=== PATIENT | female | born 1960 | race Caucasian/White ===

== ENCOUNTER 2020-06-08 12:40 | Inpatient (IN) | payer MEDICARE, MEDICAID, SELFPAY ==
[2020-06-08] VITALS (11 sets, daily range): BP systolic 133–212; BP diastolic 70–110; PULSE 40–107; RESP 12–20; TEMP 36.6–37.2; O2SAT 97–100; BMI 19.1; BMI 19.2; BMI 18.8
--- NOTE | 2020-06-08 13:15 | RAD_ITS ---
STUDY: X-RAY CHEST REASON FOR EXAM: Female, 59 years old. COUGH TECHNIQUE: PA and lateral views of the chest. COMPARISON: None. FINDINGS: Cardiac silhouette unremarkable. Pulmonary vascularity unremarkable. Aorta calcified. No focal patchy airspace opacities. No pleural effusions. COPD/hyperaeration. Upper abdomen unremarkable. Osseous structures demineralized with degenerative features. No pneumothorax. RAD/Chest PA and Lateral IMPRESSION: No acute cardiopulmonary findings Electronically Signed: Chito Dove DO at 13:31 EDT Tel , Service support ,
[2020-06-08 14:44] LABS: Absolute Neutrophil Count 1.3 X10^3/uL (2.0-7.7); Basophil# 0.03 X10^3/uL; Eosinophil# 0.01 X10^3/uL; Eosinophils% 0.3 % (0-5); Hematocrit 41.1 % (37-47); Hemoglobin 13.7 g/dL (12.0-15.0); Lymphocyte % 41.2 % (19-41); Mean Corp Hgb Conc 33.3 g/dL (32-36); Mean Corpuscular Hgb 32.4 pg (27.0-32.0); Mean Corpuscular Volume 97.2 fL (81-99); Mean Platelet Vol. 9.2 fl (6.2-12.0); Monocyte# 0.35 X10^3/uL; NRBC Flagged by Analyzer 0 % (0-5); Neutrophil # 1.32 X10^3/uL (2.7-7.7); Neutrophil % 45.5 % (47-70); Platelet Count 222 K/mm3 (150-450); RBC Distribution Width CV 12.6 % (11.6-14.6); RBC Distribution Width SD 44.9 fl (35.1-43.9); Red Blood Count 4.23 M/mm3 (4.2-5.4); White Blood Count 2.9 K/mm3 (4.4-11.0)
--- NOTE | 2020-06-08 14:44 | ED.DCSUM_ITS ---
History of Present Illness Chief Complaint: Substance Abuse Detail of Chief Complaint: Detox alcohol and cocaine and respiratory symptoms Informant: Patient Onset: Days - Respiratory symptoms 4 days., Month(s) - Patient has been drinking heavily for months. Context: Gradual Onset - With respect to alcohol intoxication, Sudden Onset - With respect to the respiratory symptoms Timing: Continuous Quality: Please read HPI Location: Please read HPI Current Severity: - - Respiratory is mild alcohol is significant Maximum Severity: Severe Worsened by: Unknown Relieved by: Nothing Associated Symptoms: Respiratory symptoms, history of chronic pancreatitis Narrative: Patient is 59-year-old woman who presents for detox. She states she drinks 12 pack a day and a pint of vodka. She has not had withdrawal seizures in the past. She denies history of DTs. She denies black or maroon-colored stool. She does bruise easily. She does admit to cocaine use. She denies history hepatitis C or HIV. She denies fever, chills night sweats. She does report nasal congestion with cough that is at times productive. She is a smoker. She denies exposure to Covid. She denies loss of taste or smell. She denies shortness of breath. She denies leg pain, swelling discoloration. Prior similar symptoms: Yes Recent Illness/Hospitalization: No - Past Medical History (1) History of alcoholism Status: Acute (2) History of pneumonia Status: Acute Past Medical History - Allergies and Home Meds Allergies/Adverse Reactions: Allergies No Known Allergies Allergy (Verified 06/08/20 12:41) Primary Care Physician: [facility] Doctor,Out of [NON-STAFF] - Prior records reviewed: Yes Surgical History: noncontributory Lives: Alone Smoking Status: Never smoker Alcohol: Heavy Drugs: Cocaine Review of Systems General: Reports: Malaise. Denies: Chills, Fever, Subjective, Sweats Eyes: Denies: Visual changes - bilaterally, Blurred Vision - bilaterally ENT: Reports: Rhinorrhea, Sore throat. Denies: Bilateral ear pain Cardiovascular: Denies: Chest pain, Palpitations Respiratory: Reports: Dyspnea, Cough, Sputum. Denies: Dyspnea on exertion, Orthopnea, Paroxysmal nocturnal dyspnea Gastrointestinal: Reports: Abdominal pain, Nausea. Denies: Vomiting, Diarrhea, Constipation, Melena, Hematochezia, -, - Genitourinary: Denies: Dysuria, Hematuria, Frequency Musculoskeletal: Denies: Myalgias, Arthralgias, Neck pain, Back pain, Swelling, Extremity Pain Skin: Denies: Rash, Wounds Neurological: Denies: Headache, Weakness Psych: Reports: Depression. Denies: Suicidal thoughts Endocrine: Denies: Polyuria, Polydipsia Hematologic: Denies: Easy bruising, Easy bleeding Physical Exam Vital Signs/Narrative: Vital Signs Temp Pulse Resp BP Pulse Ox 06/08/20 14:26 74 16 192/86 H 100 06/08/20 12:46 89 16 177/100 H 99 06/08/20 12:41 97.9 F 86 16 177/100 H 98 Inital Vital Signs reviewed: Yes General: Well nourished, Well developed, Unkempt Head: Normocephalic Eyes: Perrl, EOMI. Negative for: Pale conjunctiva, Scleral icterus ENT: Moist mucous membranes, TM's clear, Nasal congestion. Negative for: No rhinorrhea Neck: Supple, Nontender, No lymphadenopathy, No JVD Cardiovascular: Regular rate, Regular rhythm, No murmurs, Normal S1, Normal S2 Respiratory: No distress, CTA bilaterally, Chest nontender Abdomen: Soft, Nontender, Nondistended, Normal bowel sounds Rectal: Deferred Back: Nontender, Normal Inspection Extremities: Nontender, No edema Skin: Normal color, No rash, No Trauma. Negative for: Cyanosis, Diaphoresis, Jaundice Neurological: Alert, Oriented x3, Cranial nerves II-XII grossly intact, Normal Strength, Normal Sensation, Normal DTR - Is no clonus or Babinski sign. Psychological: Depressed Diagnostic/Tx/Re-eval Chest X-Ray - ED: 1 View, Read by ED Physician, Normal, Heart, Lungs, Media stinum, Bony Structures, No Acute Disease, - - Chest x-ray was read by me at 1221. Impressions Chest X-Ray 06/08/20 13:15 IMPRESSION: No acute cardiopulmonary findings Electronically Signed: Chito Dove DO at 13:31 EDT Tel , Service support , 06/08/20 13:15 Chest PA and Lateral [RAD] Stat 06/08/20 14:20 Mucosa - Nose SARS-CoV-2 Antigen (Rapid) - Final Laboratory Results 06/08/20 06/08/20 06/08/20 14:30 14:30 14:30 WBC 2.9 L RBC 4.23 Hgb 13.7 Hct 41.1 MCV 97.2 MCH 32.4 H MCHC 33.3 RDW Std Deviation 44.9 H RDW Coeff of Kelli 12.6 Plt Count 222 MPV 9.2 Immature Gran % (Auto) 0.000 Neut % (Auto) 45.5 L Lymph % (Auto) 41.2 H Desha % (Auto) 12.0 H Eos % (Auto) 0.3 Baso % (Auto) 1.0 Absolute Neuts (auto) 1.3 L Absolute Lymphs (auto) 1.20 Nucleated RBC % 0 Sodium 141 Potassium 3.5 Chloride 107 Carbon Dioxide 27.0 Anion Gap 7 BUN 6 L Creatinine 0.54 L Estim Creat Clear Calc 79.45 Est GFR (MDRD) Af Amer 148 Est GFR (MDRD) Non-Af 122 BUN/Creatinine Ratio 11.2 Glucose 71 L Calcium 8.9 Total Bilirubin 0.50 Direct Bilirubin 0.18 AST 198 H ALT 95 H Alkaline Phosphatase 178 H Total Protein 7.7 Albumin 3.7 Globulin 4.0 Urine Opiates Screen Urine Methadone Screen Ur Barbiturates Screen Ur Phencyclidine Scrn Ur Amphetamines Screen U Methamphetamin-MDMA U Benzodiazepines Scrn Urine Cocaine Screen U Cannabinoids Screen Ur Drug Screen Comment Ethyl Alcohol 157.0 06/08/20 15:00 WBC RBC Hgb Hct MCV MCH MCHC RDW Std Deviation RDW Coeff of Kelli Plt Count MPV Immature Gran % (Auto) Neut % (Auto) Lymph % (Auto) Desha % (Auto) Eos % (Auto) Baso % (Auto) Absolute Neuts (auto) Absolute Lymphs (auto) Nucleated RBC % Sodium Potassium Chloride Carbon Dioxide Anion Gap BUN Creatinine Estim Creat Clear Calc Est GFR (MDRD) Af Amer Est GFR (MDRD) Non-Af BUN/Creatinine Ratio Glucose Calcium Total Bilirubin Direct Bilirubin AST ALT Alkaline Phosphatase Total Protein Albumin Globulin Urine Opiates Screen NEGATIVE Urine Methadone Screen NEGATIVE Ur Barbiturates Screen NEGATIVE Ur Phencyclidine Scrn NEGATIVE Ur Amphetamines Screen NEGATIVE U Methamphetamin-MDMA NEGATIVE U Benzodiazepines Scrn NEGATIVE Urine Cocaine Screen POSITIVE H U Cannabinoids Screen NEGATIVE Ur Drug Screen Comment Ethyl Alcohol Blood work for neutropenia which may be due to viral illness. Covid test was negative. Tox was positive for cocaine which patient admits to using. - Medical Decision Making With history of cough and rhinorrhea will obtain Covid test and chest x-ray to rule out pneumonia and Covid infection versus viral upper restaurant infection. Appropriate blood work was obtained for admission to detox bed. Since patient is not tachycardic has no symptoms withdrawal and is not hyperreflexic treatment was not initiated in the department. ED Disposition - Plan for ED Patient: Disposition: [facility] Diagnosis: Acute alcoholic intoxication in alcoholism (blood level 0.08-0.29), Neutropenia due to infection, Upper respiratory infection with cough and congestion, Cocaine abuse Referrals: [facility] Doctor,Out of [NON-STAFF] -
[2020-06-08 15:00] LABS: AST(SGOT) 198 U/L (15-37); Alanine Aminotransfer ALT/SGPT 95 U/L (13-56); Albumin, Serum 3.7 g/dL (3.2-5.0); Alkaline Phosphatase 178 U/L (45-117); Anion Gap 7 (5-15); BUN 6 mg/dL (7-18); BUN/Creat Ratio 11.2 RATIO (10-20); Bilirubin, Direct 0.18 mg/dL (0.00-0.30); Calcium,Total 8.9 mg/dL (8.5-10.1); Chloride 107 mmol/L (98-107); Creatinine, Serum 0.54 mg/dL (0.55-1.02); EST Glomerular Filtration Rate 122 mL/min (>60); Est Glom Filt Rate - Afr Amer 148 mL/min (>60); Estimated Creatinine Clearance 79.45 ml/min; Glucose 71 mg/dL (74-106); Potassium 3.5 mmol/L (3.5-5.1); Protein, Total 7.7 g/dL (6.4-8.2); Sodium Level 141 mmol/L (136-145)
[2020-06-08 15:19] LABS: Amphetamine Urine VISTA NEGATIVE (<1000 ng/mL); Barbiturate Urine VISTA NEGATIVE (< 200 ng/mL); Benzodiazepine Urine VISTA NEGATIVE (< 200 ng/mL); Cocaine Urine VISTA POSITIVE (< 300 ng/mL); Ecstacy Urine VISTA NEGATIVE (< 500 ng/mL); Methadone Urine VISTA NEGATIVE (< 300 ng/mL); PCP Urine VISTA NEGATIVE (< 25 ng/mL); THC Urine VISTA NEGATIVE (< 50 ng/mL); Vista UDS pH Range 6
--- NOTE | 2020-06-08 15:38 | HP.PCM_ITS ---
<Tressa Mcintosh AIRLINE COUNTER AGENT - Last Filed: 06/08/20 16:04> Problem List (1) Acute alcoholic intoxication in alcoholism (blood level 0.08-0.29) Status: Acute (2) Cocaine abuse Status: Chronic (3) History of alcoholism Status: Chronic (4) History of pneumonia Status: Chronic (5) Neutropenia due to infection Status: Chronic (6) Upper respiratory infection with cough and congestion Status: Acute History of Present Illness Date of Admission: 06/08/20 Chief Complaint: Alcohol detox. The patient is a 59 year old F who presents to the emergency room requesting alcohol detox. Patient states she drinks a 12 pack per day with last drink this morning. She also admits to cocaine use although she states she does not use cocaine daily as she cannot afford it. She also reports marijuana use. Patient states she has been through detox programs in the past however it has been a while. She denies history of alcohol related seizures. She states her daughter drove her here from [facility] for detox program. She complains of nonproductive cough which she states has been ongoing for the past month. She denies fever, chills. Denies change in taste, smell. Denies exposure to Covid. Her other past medical history includes hypertension, hyperlipidemia, chronic pancreatitis, tobacco dependence. She denies abdominal pain, nausea, vomiting. Reports anxiety and shaking withdrawal symptoms currently. Past Medical History Past Medical History (Chronic Problems): Chronic Problems History of alcoholism (Chronic) History of pneumonia (Chronic) Neutropenia due to infection (Chronic) Cocaine abuse (Chronic) Allergies No Known Allergies Allergy (Verified 06/08/20 12:41) Home Medications: Ambulatory Orders Medication Instructions Recorded Lipase/Protease/Amylase [Fuentes Goss ea PO TIDCM 06/08/20 36,000 Units Capsule] Propranolol HCl [Inderal (Beta 20 mg PO DAILY 06/08/20 Shazia)] Simvastatin [Zocor] 20 mg PO QHS 06/08/20 Surgical History: no surgical history Psychiatric History: No pertinent psych hx DOUBLE BACK OPERATOR History: No pertinent DOUBLE BACK OPERATOR history Lives: Alone Smoking Status: Current every day smoker Tobacco Use: Cigarettes Alcohol: Heavy Drugs: Cocaine, Marijuana - *Family History Maternal History Items: Heart Disease, Hypertension Paternal History Items: Heart Disease, Hypertension Review of Systems Constitutional: Reports: Chills, Malaise. Denies: Fever HEENT: Reports: Nasal Congestion. Denies: Head Aches, Sinus Congestion, Sinus Drainage, Sore Throat Cardiovascular: Denies: Chest Pain, Edema, Palpitations, Syncope Respiratory: Reports: Cough. Denies: Shortness of Breath, Sputum production, Wheezing Gastrointestinal: Denies: Abdominal Pain, Nausea, Vomiting Genitourinary: Denies: Dysuria Musculoskeletal: Denies: Joint Pain, Joint Tenderness Skin: Denies: Rash, Wounds Neurological: Denies: Numbness, Tingling, Focal weakness Psychiatric: Denies: Anxiety, Depression, Homicidal Ideations, Suicidal Ideations Hematologic/ Lymphatic: Denies: Easy Bruising, Easy Bleeding VTE Information - Inpt Only VTE Present on Admission: No VTE Mechan Device Prophylaxis: None VTE Pharm Prophylaxis ordered?: No Reason prophylaxis not ordered:: Treatment Not Indicated Patient Problems: Active and Suspected Problems Acute alcoholic intoxication in alcoholism (blood level 0.08-0.29) (Acute) Upper respiratory infection with cough and congestion (Acute) - Physical Exam Vitals/I&O's: Vital Signs Temp Pulse Resp BP Pulse Ox 97.9 F 74 16 192/86 H 100 06/08/20 12:41 06/08/20 14:26 06/08/20 14:26 06/08/20 14:26 06/08/20 14:26 Oxygen Delivery Method Room Air Weight: 101 lb 6.602 oz Body Mass Index (BMI) 19.1 General: Alert, Oriented x3, Cooperative, - - Tearful HEENT: Atraumatic, PERRLA, EOMI, Normocephalic Oral: Dry Mucosa Neck: Supple, No JVD, Negative Carotid Bruits Lungs: Clear to auscultation, Diminished Cardiovascular: Regular rate, No murmurs Abdomen: Bowel Sounds Present, Soft, Non Tender, Non-Distended Extremities: No clubbing, No cyanosis, No edema, Capillary Refill Less than 3 Seconds Skin: No rashes, No breakdown Musculoskeletal: No Tenderness to Palpation of Joints or Extremities Neurological: Cranial nerves II-XII grossly intact, Neuro grossly intact Psych/Mental Status: Normal Affect, Appropriate Microbiology Past 72 Hours 06/08/20 14:20 Mucosa - Nose SARS-CoV-2 Antigen (Rapid) - Final Laboratory Results 06/08/20 14:30: WBC 2.9 L, RBC 4.23, Hgb 13.7, Hct 41.1, MCV 97.2, MCH 32.4 H, MCHC 33.3, RDW Std Deviation 44.9 H, RDW Coeff of Kelli 12.6, Plt Count 222, MPV 9.2, Immature Gran % (Auto) 0.000, Neut % (Auto) 45.5 L, Lymph % (Auto) 41.2 H, Wake % (Auto) 12.0 H, Eos % (Auto) 0.3, Baso % (Auto) 1.0, Absolute Neuts (auto) 1.3 L, Absolute Lymphs (auto) 1.20, Nucleated RBC % 0 06/08/20 14:30: Sodium 141, Potassium 3.5, Chloride 107, Carbon Dioxide 27.0, Anion Gap 7, BUN 6 L, Creatinine 0.54 L, Estim Creat Clear Calc 79.45, Est GFR (MDRD) Af Amer 148, Est GFR (MDRD) Non-Af 122, BUN/Creatinine Ratio 11.2, Glucos e 71 L, Calcium 8.9, Total Bilirubin 0.50, Direct Bilirubin 0.18, AST 198 H, ALT 95 H, Alkaline Phosphatase 178 H, Total Protein 7.7, Albumin 3.7, Globulin 4.0 06/08/20 14:30: Ethyl Alcohol 157.0 06/08/20 15:00: Urine Opiates Screen NEGATIVE, Urine Methadone Screen NEGATIVE, Ur Barbiturates Screen NEGATIVE, Ur Phencyclidine Scrn NEGATIVE, Ur Amphetamines Screen NEGATIVE, U Methamphetamin-MDMA NEGATIVE, U Benzodiazepines Scrn NEGATIVE, Urine Cocaine Screen POSITIVE H, U Cannabinoids Screen NEGATIVE, Ur Drug Screen Comment Assessment/Plan All Active Problems Acute alcoholic intoxication in alcoholism (blood level 0.08-0.29) (Acute) Upper respiratory infection with cough and congestion (Acute) 1. Acute alcohol withdrawal, chronic alcohol dependence-medical stabilization per protocol. Phenobarb taper. As needed regimen for somatic complaints. Thiamine, folic acid, multivitamin supplementation. Alcohol level 157 on admission. OneEity consult. 2. Cocaine use-encouraged cessation. Tox screen negative for other substances. 3. Hypertension-patient states she is on propanolol. Unsure dose. Home med list not yet updated. PRN hydralazine for systolic blood pressure greater than 160. 4. Hyperlipidemia-continue home statin regimen. 5. Chronic pancreatitis-patient denies abdominal pain. DVT prophylaxis-low risk, not indicated This patient was seen by EMMA Guerra under the supervision of Dr. Bedoya. <Roya Bedoya - Last Filed: 06/08/20 16:57> History of Present Illness The patient is a 59 year old F [] Past Medical History Allergies No Known Allergies Allergy (Verified 06/08/20 12:41) - Physical Exam Vitals/I&O's: Vital Signs Temp Pulse Resp BP Pulse Ox 97.9 F 64 12 144/81 H 97 06/08/20 12:41 06/08/20 15:57 06/08/20 15:57 06/08/20 15:57 06/08/20 15:00 Oxygen Delivery Method Room Air Weight: 46 kg Body Mass Index (BMI) 19.1 Microbiology Past 72 Hours 06/08/20 14:20 Mucosa - Nose SARS-CoV-2 Antigen (Rapid) - Final Laboratory Results 06/08/20 14:30: WBC 2.9 L, RBC 4.23, Hgb 13.7, Hct 41.1, MCV 97.2, MCH 32.4 H, MCHC 33.3, RDW Std Deviation 44.9 H, RDW Coeff of Kelli 12.6, Plt Count 222, MPV 9.2, Immature Gran % (Auto) 0.000, Neut % (Auto) 45.5 L, Lymph % (Auto) 41.2 H, Wake % (Auto) 12.0 H, Eos % (Auto) 0.3, Baso % (Auto) 1.0, Absolute Neuts (auto) 1.3 L, Absolute Lymphs (auto) 1.20, Nucleated RBC % 0 06/08/20 14:30: Sodium 141, Potassium 3.5, Chloride 107, Carbon Dioxide 27.0, Anion Gap 7, BUN 6 L, Creatinine 0.54 L, Estim Creat Clear Calc 79.45, Est GFR (MDRD) Af Amer 148, Est GFR (MDRD) Non-Af 122, BUN/Creatinine Ratio 11.2, Glucose 71 L, Calcium 8.9, Total Bilirubin 0.50, Direct Bilirubin 0.18, AST 198 H, ALT 95 H, Alkaline Phosphatase 178 H, Total Protein 7.7, Albumin 3.7, Globulin 4.0 06/08/20 14:30: Ethyl Alcohol 157.0 06/08/20 14:30: Lipase 160 06/08/20 15:00: Urine Opiates Screen NEGATIVE, Urine Methadone Screen NEGATIVE, Ur Barbiturates Screen NEGATIVE, Ur Phencyclidine Scrn NEGATIVE, Ur Amphetamines Screen NEGATIVE, U Methamphetamin-MDMA NEGATIVE, U Benzodiazepines Scrn NEGATIVE, Urine Cocaine Screen POSITIVE H, U Cannabinoids Screen NEGATIVE, Ur Drug Screen Comment 06/08/20 16:00: COVID-19 ([facility]ARRA) Pending Current Medications Sodium Chloride (0.9% Saline Lock 10 Ml Syringe) 10 - 40 ml IV UD PRN PRN Reason: SALINE FLUSH Assessment/Plan This patient was seen in conjunction with Tressa Mcintosh NP. I have independently interviewed and examined the patient and reviewed pertinent historical, laboratory, and other data. Please refer to her note for patient's presentation, findings, and recommendations. 59 y/o female with PMHx of Hypertension, Hyperlipidemia, chronic alcohol use disorder, chronic pancreatitis who comes in requesting for medical stabilization from alcohol withdrawal. She admits to drinking 12 packs of beer. Last drank 3 cans of beer on the day of admission. She also uses cocaine, marijuana and smokes tobacco. She used cocaine the night prior to admission. She comes to [facility] at the insistence of her daughter. She has some URI symptoms of cough, running nose. Denies fever or chills. Denies any sick contacts. Vitals show uncontrolled BP Physical Exam: Gen: Looks in some discomfort, not pale, not jaundiced, alert oriented x3 CVS:HS I +II, regular, no murmurs RESP: Diminished at lung bases GI: BS present and normal, nontender, no palpable organs EXT:No edema Labs reviewed: ASSESSMENT: 1. Chronic alcohol use disorder, with impending acute alcohol withdrawal 2. Hypertensive urgency 3. URI 4. Nicotine dependence, refused replacement 5. Hyperlipidemia 6. Chronic pancreatitis 7. Elevated liver enzymes Plan: Admit to Med surg Check Mg COVID-19 PCR, Resp special event assistant on Ativan withdrawal protocol Continue on thiamine, folic acid Hydralazine IV prn for blood pressure Continue on rest of home meds including statin, Creon Home med list is pending Inpatient E&M: 54411 Init Hosp L2
--- NOTE | 2020-06-08 15:47 | CM.ED ---
Social Work Consult: Substance Abuse Referral Source: Self referral due to reason for visit. Met with patient in room. Introduced self and social worker health services role. Patient agreeable to speak with this social worker health services. Patient reports to be seeking medical management of withdrawal symptoms. Patient substance of choice is alcohol but also uses Heroin and THC. Patient reports last use of alcohol was today and THC was yesterday. Patient reports to have family for support and plans to follow up with a residential program. Patient verbally agreeing to [facility]. Active listening and support provided. Patient reports to have been sober for 30 years until 2 years ago when patient father passed and I just slipped up. Patient reports motivation as I am tired. Telephone call to Silvia Retana. Updated on patient admission to [facility] program. Silvia plans to see patient tomorrow. Aston TIPTON, NICKIE
[2020-06-08] MEDS: Acetaminophen 325 MG Tablet PO (16:05)
[2020-06-08 16:10] LABS: Lipase 160 U/L (73-393)
--- NOTE | 2020-06-08 17:25 | ED.RN ---
DR YADAV INFORMED OF HYPERTENSION. PT REPORTS HX OF HTN-TAKES INDERAL 20MG DAILY AT HOME, HAS NOT HAD TODAY. PT REPORTS SBP IN 170'S AT HOME. DR YADAV STATES CANNOT GIVE PT INDERAL W/HX OF COCAINE USE. STATES HE WILL PLACE ORDER FOR ATIVAN X1.
[2020-06-08] MEDS: LORazepam 2 MG/ML Syringe 1 MG IV ×2 (17:32→18:05)
--- NOTE | 2020-06-08 17:59 | ED.RN ---
DR YADAV INFORMED WH=279/110. PT CONTINUES TO C/O GONZALEZ. STATES HE WILL PLACE NEW ORDERS
[2020-06-08] MEDS: Verapamil 5 MG/2 ML VIAL IV (18:39)
[2020-06-08 18:53] LABS: Probe Check NS; Specimen Processing Control NS
--- NOTE | 2020-06-08 19:31 | EKG12_ITS ---
Test Reason : COCAINE USE Blood Pressure : / mmHG Vent. Rate : 090 BPM Atrial Rate : 090 BPM P-R Int : 144 ms QRS Dur : 066 ms QT Int : 350 ms P-R-T Axes : 072 029 051 degrees QTc Int : 428 ms Normal sinus rhythm Normal ECG No previous ECGs available Confirmed by ALIYAH WRIGHT, SAMANTA ([id number]), sports editor KEISHA NYE ([id number]) on 06/11/2020 1:08:51 PM Referred By: PHONG Confirmed By:SAMANTA LY MD
[2020-06-08 19:52] LABS: Magnesium 2.2 mg/dL (1.6-2.6)
[2020-06-08] MEDS: hydrALAZINE 20 MG/ML Vial 5 MG IV (20:20)
[2020-06-08] MEDS: LORazepam 1 MG Tablet 0.5 MG PO (20:20)
[2020-06-08] MEDS: Ibuprofen 600 MG Tablet PO (20:22)
[2020-06-08] MEDS: 0.9% Saline Lock 10 ML Syringe IV (20:27)
[2020-06-08] MEDS: Ondansetron 8 MG Tablet PO (20:49)
[2020-06-08] MEDS: Dicyclomine 10 MG Capsule 20 MG PO (20:50)
[2020-06-09] VITALS (11 sets, daily range): BP systolic 124–168; BP diastolic 63–97; PULSE 72–102; RESP 16–18; TEMP 36.1–37.2; O2SAT 96–100; BMI 18.8
[2020-06-09] MEDS: LORazepam 1 MG Tablet 0.5 MG PO ×7 (00:09→23:29)
[2020-06-09] MEDS: Ibuprofen 600 MG Tablet PO ×3 (06:39→21:05)
[2020-06-09] MEDS: Folic Acid 1 MG Tablet PO (08:11)
[2020-06-09] MEDS: Thiamine Hydrochloride 100 MG Tablet PO (08:11)
[2020-06-09] MEDS: hydrALAZINE 20 MG/ML Vial 5 MG IV ×2 (08:16→21:12)
[2020-06-09] MEDS: 0.9% Saline Lock 10 ML Syringe IV ×2 (08:16→21:13)
--- NOTE | 2020-06-09 10:17 | ADDICTION ---
This typewriter ribbon winder met with PT in her room to conduct ASAM, MSE, AUDIT assessments and to plan for d/c. PT A+Ox4. All assessments completed, faxed to [facility] and placed in PT's chart. PT requesting residential placement at [facility]. A referral will be sent to [facility] Res. Director for approval.
[2020-06-09] MEDS: Ondansetron 8 MG Tablet PO (11:10)
[2020-06-09 11:38] LABS: ALB/GLOB Ratio 0.8 RATIO (0.9-2.4); AST(SGOT) 125 U/L (15-37); Alanine Aminotransfer ALT/SGPT 81 U/L (13-56); Albumin, Serum 3.2 g/dL (3.2-5.0); Alkaline Phosphatase 169 U/L (45-117); Anion Gap 6 (5-15); BUN 10 mg/dL (7-18); BUN/Creat Ratio 13.4 RATIO (10-20); Calcium,Total 9.3 mg/dL (8.5-10.1); Chloride 105 mmol/L (98-107); Creatinine, Serum 0.74 mg/dL (0.55-1.02); EST Glomerular Filtration Rate 84 mL/min (>60); Est Glom Filt Rate - Afr Amer 102 mL/min (>60); Estimated Creatinine Clearance 56.82 ml/min; Globulin 3.9 g/dL (2.2-4.2); Glucose 126 mg/dL (74-106); Lipase 198 U/L (73-393); Potassium 3.7 mmol/L (3.5-5.1); Protein, Total 7.1 g/dL (6.4-8.2); Sodium Level 136 mmol/L (136-145)
--- NOTE | 2020-06-09 12:31 | PCM.NTREPORT ---
Nutrition Therapy Report - History Nutrition Services has been consulted to:: Manage nutrient details of diet order Current diet / nutrition support order:: Regular; Ensure Enlive 120 ml 4x/day medpass - Anthropometric Measurements Height:: 5 ft 1 in Weight:: 45.087 kg Body Mass Index (BMI):: 18.8 - Relevant Labs Relevant Labs:: WBC 2.9 K/mm3 (4.4-11.0) L 06/08/20 14:30 MCH 32.4 pg (27.0-32.0) H 06/08/20 14:30 RDW Std Deviation 44.9 fl (35.1-43.9) H 06/08/20 14:30 Neut % (Auto) 45.5 % (47-70) L 06/08/20 14:30 Lymph % (Auto) 41.2 % (19-41) H 06/08/20 14:30 [place]oir % (Auto) 12.0 % (0-10) H 06/08/20 14:30 Absolute Neuts (auto) 1.3 X10^3/uL (2.0-7.7) L 06/08/20 14:30 BUN 6 mg/dL (7-18) L 06/08/20 14:30 Creatinine 0.54 mg/dL (0.55-1.02) L 06/08/20 14:30 Glucose 126 mg/dL (74-106) H 06/09/20 11:03 AST 125 U/L (15-37) H 06/09/20 11:03 ALT 81 U/L (13-56) H 06/09/20 11:03 Alkaline Phosphatase 169 U/L (45-117) H 06/09/20 11:03 Albumin/Globulin Ratio 0.8 RATIO (0.9-2.4) L 06/09/20 11:03 - Assessment Food / Nutrition-Related History:: 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 Consumes 12 pack ETOH/daily. Notes consumes maybe 1 meal per day. Reports good intake at b-fast consumed ~75% of meal. States chewing difficulty d/t the top of my mouth feels numb- increased phlegm in throat relates causing swallowing difficulty-- encouraged pt to clear/spit out phlegm as able. Reports nausea/vomiting w/ last episode of vomiting earlier this day. Occasional diarrhea. States unintentional wt loss 50# x 1 year w/ wt ~ 100# currently- unintentional wt loss 33%x 1 year (severe). No wt hx per EMR. States experiencing stomach pain - informed JUAN Lazcano. - Nutrition Diagnosis Problem / Etiology / Signs & Symptoms (PES):: Severe malnutrition in the context of chronic illness/condition RT inadequate oral intake d/t chronic pancreatitis & excessive ETOH intake AEB pt consuming </=50% energy intake compared to estimated energy needs >/=3 months, unintentional wt loss 33% x 1 year, and reported intake 12 alcoholic beverages per day. Evidence of Malnutrition Exists:: Yes Severe PCM:: Chronic Illness - Nutrition Intervention Nutrition Prescription:: [id number] calories; 45-55 g protein - Food / Nutrient Delivery Interventions Nutrition support ordered as / adjusted to:: Continue Regular diet & Ensure Enlive at medpass. Will provide ensure pudding w/ pt meals for additional jericho/protein if consumed. Nutrition education provided?: No - MNT Monitoring Further MNT monitoring and evaluation required?: Yes MNT Follow-up in:: 3-5 days
[2020-06-09] MEDS: Dicyclomine 10 MG Capsule 20 MG PO (13:14)
--- NOTE | 2020-06-09 14:12 | NURSING ---
PATIENT REQUESTING TO GO HOME. EXPLAINED ABOUT SIGNING SELF OUT AMA, STILL WANTS TO GO. AMA PAPER SIGNED, BELONGINGS RETURNED TO PATIENT. SHE IS CALLING HER DAUGHTER FROM HER OWN CELL PHONE FOR RIDE HOME. GETTING DRESSED.
--- NOTE | 2020-06-09 14:55 | NURSING ---
daughter refuses to pick patient up, patient also called son who refused to come pick her up. belongings locked back up in bin along with cell phone.
--- NOTE | 2020-06-09 15:40 | PCM.PN.HOSP ---
Patient Problems: Active and Suspected Problems Acute alcoholic intoxication in alcoholism (blood level 0.08-0.29) (Acute) Upper respiratory infection with cough and congestion (Acute) Subjective: Complains of abdominal pain that is consistent with her history of alcoholic pancreatitis. Complains of something on her right eye which she has lacrimation of her eye. Did state that she was going to leave [place] earlier and then decided against it when she could not get a ride to [place] today. Vitals/I&O's: Vital Signs Temp Pulse Resp BP Pulse Ox 37.2 C 102 H 18 124/63 H 100 06/09/20 12:31 06/09/20 12:31 06/09/20 12:31 06/09/20 12:31 06/09/20 12:31 Oxygen Delivery Method Room Air Weight: 45.087 kg Body Mass Index (BMI) 18.8 Intake and Output for Last 24 Hours 06/07/20 06/08/20 06/09/20 23:59 23:59 23:59 Intake Total 200 / 200 Output Total 50 / 50 Balance 150 / 150 General: Alert, No apparent distress HEENT: Atraumatic, Normocephalic, - - no sceral icterus. no stye. Oral: Moist Mucosa, No Gingival or Mucosal Lesions/ Ulcerations Neck: No Nodes, Thyroid Normal Size and Texture Lungs: Clear to auscultation, Normal air movement, No rhonchi, No wheeze, No rales Cardiovascular: Regular rate, Regular Rhythm, Normal S1, Normal S2, No murmurs Abdomen: Bowel Sounds Present, Soft, Non-Distended, No Hepato-splenomegaly, Tender - epigastrum Extremities: No edema, No Calf Tenderness Skin: No rashes, No breakdown Musculoskeletal: Cachexia, Muscle Wasting Psych/Mental Status: Normal Affect, Appropriate Microbiology Past 72 Hours 06/08/20 16:00 Mucosa - Nasopharyngeal Respiratory Panel (PCR) - Final 06/08/20 14:20 Mucosa - Nose SARS-CoV-2 Antigen (Rapid) - Final Laboratory Results 06/08/20 14:30: Lipase 160 06/08/20 14:30: Magnesium 2.2 06/08/20 16:00: COVID-19 ([facility]) Not Detected 06/09/20 11:03: Sodium 136, Potassium 3.7, Chloride 105, Carbon Dioxide 25.0, Anion Gap 6, BUN 10, Creatinine 0.74, Estim Creat Clear Calc 56.82, Est GFR (MDRD) Af Amer 102, Est GFR (MDRD) Non-Af 84, BUN/Creatinine Ratio 13.4, Glucose 126 H, Calcium 9.3, Total Bilirubin 0.80, AST 125 H, ALT 81 H, Alkaline Phosphatase 169 H, Total Protein 7.1, Albumin 3.2, Globulin 3.9, Albumin/Globulin Ratio 0.8 L, Lipase 198 Current Medications Acetaminophen (Acetaminophen 500 Mg Tablet) 500 mg PO Q4H PRN PRN PRN Reason: Temp > 100.4 F Al Hydroxide/Mg Hydroxide (Mag Hydrox/Al Hydrox/Simeth 30 Ml Udc) 30 ml PO Q6H PRN PRN PRN Reason: dyspesia Bisacodyl (Bisacodyl 10 Mg Suppository) 10 mg RC DAILY PRN PRN Reason: Constipation Dicyclomine HCl (Dicyclomine 10 Mg Capsule) 20 mg PO Q6H PRN PRN PRN Reason: abdominal discomfort Last Admin: 06/09/20 13:14 Dose: 20 mg Documented by: Folic Acid (Folic Acid 1 Mg Tablet) 1 mg PO DAILY@0800 [facility] Last Admin: 06/09/20 08:11 Dose: 1 mg Documented by: Gabapentin (Gabapentin 300 Mg Capsule) 300 mg PO Q8H PRN PRN PRN Reason: moderate to severe anxiety Hydralazine HCl (Hydralazine 20 Mg/Ml Vial) 5 mg IV Q4H PRN PRN PRN Reason: BLOOD PRESSURE Last Admin: 06/09/20 08:16 Dose: 5 mg Documented by: Hydroxyzine Pamoate (Hydroxyzine Aggie 25 Mg Capsule) 50 mg PO Q4H PRN PRN PRN Reason: mild anxiety Ibuprofen (Ibuprofen 600 Mg Tablet) 600 mg PO Q8H PRN PRN PRN Reason: PAIN Last Admin: 06/09/20 13:16 Dose: 600 mg Documented by: Loperamide HCl (Loperamide 2 Mg Capsule) 2 mg PO Q4H PRN PRN PRN Reason: LOOSE STOOLS Lorazepam (Lorazepam 1 Mg Tablet) 2 mg PO Q4H [facility]; Taper Stop: 06/13/20 03:30 Last Admin: 06/09/20 15:27 Dose: 2 mg Documented by: Nutritional Formula (Lactose Free) (Ensure Enlive 120 Ml Liquid) 120 ml PO 4X/DAY [facility] Last Admin: 06/09/20 14:27 Dose: Not Given Documented by: Ondansetron HCl (Ondansetron 8 Mg Tablet) 8 mg PO Q8H PRN PRN PRN Reason: NAUSEA Last Admin: 06/09/20 11:10 Dose: 8 mg Documented by: Senna (Senna Tablet) 2 tablet PO QHS PRN PRN Reason: Constipation Sodium Chloride (0.9% Saline Lock 10 Ml Syringe) 10 - 40 ml IV UD PRN PRN Reason: SALINE FLUSH Last Admin: 06/09/20 08:16 Dose: 10 ml Documented by: Thiamine HCl (Thiamine Hydrochloride 100 Mg Tablet) 100 mg PO DAILYCM [facility] Last Admin: 06/09/20 08:11 Dose: 100 mg Documented by: Trazodone HCl (Trazodone 100 Mg Tablet) 100 mg PO QHS PRN PRN Reason: INSOMNIA STROKE Vital Signs/Narrative: Vital Signs Temp Pulse Resp BP Pulse Ox 06/09/20 12:31 37.2 C 102 H 18 124/63 H 100 Medical Necessity - Tobacco Use Smoking Status: Current every day smoker Tobacco Use: Cigarettes Assessment/Plan All Active Problems Acute alcoholic intoxication in alcoholism (blood level 0.08-0.29) (Acute) Upper respiratory infection with cough and congestion (Acute) 1. acute alcohol withdrawal ongoing plan: continue with lorazepam taper, thiamine, folate, additional agents for other somatic complaints. Patient to follow-up with 180 if she completes her treatment here. 2. Abdominal pain Patient reports a history of alcoholic pancreatitis Lipase level was negative x2 this does not exclude pancreatitis particular if she has chronic pancreatitis. Plan: Check a ultrasound of her abdomen. 3. Severe protein calorie malnutrition Seen by nutrition They recommend continued regular diet and Ensure and live at [facility]. Ensure pudding with meals. Inpatient E&M: [id number] [facility] Hosp L2
[2020-06-10 03:20] VITALS: BP 154/94; PULSE 80; RESP 16; TEMP 36.7; O2SAT 100
[2020-06-10] MEDS: LORazepam 1 MG Tablet 0.5 MG PO ×6 (03:42→23:38)
[2020-06-10] MEDS: Mag Hydrox/Al Hydrox/Simeth 30 ML UDC PO ×3 (06:40→20:40)
[2020-06-10] MEDS: Dicyclomine 10 MG Capsule 20 MG PO ×3 (06:41→20:40)
[2020-06-10] MEDS: Ibuprofen 600 MG Tablet PO ×2 (06:43→15:17)
[2020-06-10 07:26] LABS: ALB/GLOB Ratio 0.8 RATIO (0.9-2.4); AST(SGOT) 75 U/L (15-37); Alanine Aminotransfer ALT/SGPT 64 U/L (13-56); Alkaline Phosphatase 143 U/L (45-117); Anion Gap 3 (5-15); BUN 11 mg/dL (7-18); BUN/Creat Ratio 20.6 RATIO (10-20); Calcium,Total 9.2 mg/dL (8.5-10.1); Chloride 106 mmol/L (98-107); Creatinine, Serum 0.53 mg/dL (0.55-1.02); EST Glomerular Filtration Rate 123 mL/min (>60); Est Glom Filt Rate - Afr Amer 149 mL/min (>60); Estimated Creatinine Clearance 79.34 ml/min; Globulin 3.6 g/dL (2.2-4.2); Glucose 82 mg/dL (74-106); Potassium 3.9 mmol/L (3.5-5.1); Protein, Total 6.6 g/dL (6.4-8.2); Sodium Level 137 mmol/L (136-145)
--- NOTE | 2020-06-10 08:05 | NURSING ---
Off unit to ultrasound.
[2020-06-10 09:25] VITALS: BP 146/83; PULSE 83; RESP 16; TEMP 37; O2SAT 99
[2020-06-10] MEDS: Thiamine Hydrochloride 100 MG Tablet PO (09:31)
[2020-06-10] MEDS: Folic Acid 1 MG Tablet PO (09:31)
--- NOTE | 2020-06-10 10:18 | ADDICTION ---
This scientific technical writer met with PT to plan for d/c. PT to directly admit to [facility] on 06/15/20. [facility] to provide transportation.
--- NOTE | 2020-06-10 13:51 | PN_ITS ---
Patient Problems: Active and Suspected Problems Acute alcoholic intoxication in alcoholism (blood level 0.08-0.29) (Acute) Upper respiratory infection with cough and congestion (Acute) Subjective: Still with epigastric abdominal pain. Complains that is worse. Vitals/I&O's: Vital Signs Temp Pulse Resp BP Pulse Ox 37.0 C 83 16 146/83 H 99 06/10/20 09:25 06/10/20 09:25 06/10/20 09:25 06/10/20 09:25 06/10/20 09:25 Oxygen Delivery Method Room Air Weight: 45.087 kg Body Mass Index (BMI) 18.8 Intake and Output for Last 24 Hours 06/08/20 06/09/20 06/10/20 23:59 23:59 23:59 Intake Total 760 / 760 300 / 300 Output Total 50 / 50 Balance 710 / 710 300 / 300 General: Alert, No apparent distress HEENT: Atraumatic, Normocephalic Oral: Moist Mucosa, No Gingival or Mucosal Lesions/ Ulcerations Neck: No Nodes, Thyroid Normal Size and Texture Lungs: Clear to auscultation, Normal air movement, No rhonchi, No wheeze Cardiovascular: Regular rate, Regular Rhythm, Normal S1, Normal S2 Abdomen: Bowel Sounds Present, Soft, Non-Distended, Tender Extremities: No edema, No Calf Tenderness Musculoskeletal: No Tenderness to Palpation of Joints or Extremities, Cachexia, Muscle Wasting Psych/Mental Status: Appropriate Microbiology Past 72 Hours 06/08/20 16:00 Mucosa - Nasopharyngeal Respiratory Panel (PCR) - Final 06/08/20 14:20 Mucosa - Nose SARS-CoV-2 Antigen (Rapid) - Final Laboratory Results 06/10/20 06:10: Sodium 137, Potassium 3.9, Chloride 106, Carbon Dioxide 28.0, Anion Gap 3 L, BUN 11, Creatinine 0.53 L, Estim Creat Clear Calc 79.34, Est GFR (MDRD) Af Amer 149, Est GFR (MDRD) Non-Af 123, BUN/Creatinine Ratio 20.6 H, Glucose 82, Calcium 9.2, Total Bilirubin 0.40, AST 75 H, ALT 64 H, Alkaline Phosphatase 143 H, Total Protein 6.6, Albumin 3.0 L, Globulin 3.6, Albumin/Globulin Ratio 0.8 L Current Medications Acetaminophen (Acetaminophen 500 Mg Tablet) 500 mg PO Q4H PRN PRN PRN Reason: Temp > 100.4 F Al Hydroxide/Mg Hydroxide (Mag Hydrox/Al Hydrox/Simeth 30 Ml Udc) 30 ml PO Q6H PRN PRN PRN Reason: dyspesia Last Admin: 06/10/20 06:40 Dose: 30 ml Documented by: Bisacodyl (Bisacodyl 10 Mg Suppository) 10 mg RC DAILY PRN PRN Reason: Constipation Dicyclomine HCl (Dicyclomine 10 Mg Capsule) 20 mg PO Q6H PRN PRN PRN Reason: abdominal discomfort Last Admin: 06/10/20 06:41 Dose: 20 mg Documented by: Folic Acid (Folic Acid 1 Mg Tablet) 1 mg PO DAILY@0800 [facility] Last Admin: 06/10/20 09:31 Dose: 1 mg Documented by: Gabapentin (Gabapentin 300 Mg Capsule) 300 mg PO Q8H PRN PRN PRN Reason: moderate to severe anxiety Hydralazine HCl (Hydralazine 20 Mg/Ml Vial) 5 mg IV Q4H PRN PRN PRN Reason: BLOOD PRESSURE Last Admin: 06/09/20 21:12 Dose: 5 mg Documented by: Hydroxyzine Pamoate (Hydroxyzine Aggie 25 Mg Capsule) 50 mg PO Q4H PRN PRN PRN Reason: mild anxiety Ibuprofen (Ibuprofen 600 Mg Tablet) 600 mg PO Q8H PRN PRN PRN Reason: PAIN Last Admin: 06/10/20 06:43 Dose: 600 mg Documented by: Loperamide HCl (Loperamide 2 Mg Capsule) 2 mg PO Q4H PRN PRN PRN Reason: LOOSE STOOLS Lorazepam (Lorazepam 1 Mg Tablet) 1 mg PO Q4H [facility]; Taper Stop: 06/13/20 03:30 Last Admin: 06/10/20 11:30 Dose: 1 mg Documented by: Nutritional Formula (Lactose Free) (Ensure Enlive 120 Ml Liquid) 120 ml PO 4X/DAY [facility] Last Admin: 06/10/20 09:31 Dose: 120 ml Documented by: Ondansetron HCl (Ondansetron 8 Mg Tablet) 8 mg PO Q8H PRN PRN PRN Reason: NAUSEA Last Admin: 06/09/20 11:10 Dose: 8 mg Documented by: Senna (Senna Tablet) 2 tablet PO QHS PRN PRN Reason: Constipation Sodium Chloride (0.9% Saline Lock 10 Ml Syringe) 10 - 40 ml IV UD PRN PRN Reason: SALINE FLUSH Last Admin: 06/09/20 21:13 Dose: 20 ml Documented by: Thiamine HCl (Thiamine Hydrochloride 100 Mg Tablet) 100 mg PO DAILYCM [facility] Last Admin: 06/10/20 09:31 Dose: 100 mg Documented by: Trazodone HCl (Trazodone 100 Mg Tablet) 100 mg PO QHS PRN PRN Reason: INSOMNIA Medical Necessity - Tobacco Use Smoking Status: Current every day smoker Tobacco Use: Cigarettes Assessment/Plan All Active Problems Acute alcoholic intoxication in alcoholism (blood level 0.08-0.29) (Acute) Upper respiratory infection with cough and congestion (Acute) 1. acute alcohol withdrawal ongoing plan: * continue with lorazepam taper, thiamine, folate, additional agents for other somatic complaints. * DW addiction medicine, [facility] Plan is to keep pt here until then 2. Abdominal pain Patient reports a history of alcoholic pancreatitis Lipase level was negative x2 this does not exclude pancreatitis particular if she has chronic pancreatitis. US negative for pancreatitis Plan: * given absence of obvious pancreatitis, will start PPI. * request records from where much of her care has been in regards to her history of pancreatitis 3. Severe protein calorie malnutrition Seen by nutrition They recommend continued regular diet and Ensure and live at [facility]. Ensure pudding with meals. 4. Transaminitis likely 2/2 alcohol trending down monitor Inpatient E&M: [id number] Subs Hosp L2
[2020-06-10] MEDS: Gabapentin 300 MG Capsule PO (14:01)
[2020-06-10] MEDS: Ondansetron 8 MG Tablet PO (14:01)
[2020-06-10 14:06] VITALS: BP 157/82; PULSE 94; RESP 16; TEMP 36.7; O2SAT 99
--- NOTE | 2020-06-10 15:49 | US_ITS ---
STUDY: ABDOMINAL ULTRASOUND - RIGHT UPPER QUADRANT REASON FOR VISIT: Female, 59 years old abdominal pain -- concern for acute on chronic pancreatitis to be done AM NPO @midnight TECHNIQUE: Ultrasound evaluation of the right upper quadrant was performed with real-time and static lazar-scale imaging. TECHNICAL QUALITY: Adequate. COMPARISON: None. FINDINGS: Liver: The liver measures 15.5 cm. There is normal echogenicity of the liver. The bile ducts are within normal limits. There is hepatic color flow. The direction of portal flow is hepatopetal. There is no demonstrated mass lesion. Gallbladder: The patient is status post cholecystectomy. Common Bile Duct (C.B.D.): The common bile duct measures 6 mm. Pancreas: Normal size of the head, body and tail of the pancreas. There is normal echogenicity of the pancreas. There is no demonstrated pancreatic mass or cyst. Right Kidney: Normal size of the right kidney. The right kidney measures 9.9 cm x 4.9 cm x 3.4 cm. Normal renal cortex. The right cortex measures 1.5 cm. There is no demonstrated renal mass or cyst. There is no right hydronephrosis. US/Abdomen Limited IMPRESSION: Status post cholecystectomy. No acute abnormality is seen. Electronically Signed: Singh Au MD at 9:30 EDT , Service support ,
[2020-06-10 18:00] VITALS: BP 136/75; PULSE 100; RESP 16; TEMP 36.8; O2SAT 99
[2020-06-10] MEDS: hydrOXYzine PAM 25 MG Capsule 50 MG PO (19:22)
[2020-06-10] MEDS: traZODone 100 MG Tablet PO (20:40)
[2020-06-10] MEDS: Acetaminophen 500 MG Tablet PO (20:40)
[2020-06-10 20:54] VITALS: BP 154/71; PULSE 87; RESP 18; TEMP 37.1; O2SAT 100
[2020-06-11] VITALS (8 sets, daily range): BP systolic 133–164; BP diastolic 67–87; PULSE 61–100; RESP 16–18; TEMP 36.6–37; O2SAT 96–100
[2020-06-11] MEDS: LORazepam 1 MG Tablet 0.5 MG PO ×4 (03:38→20:50)
[2020-06-11] MEDS: Folic Acid 1 MG Tablet PO (08:23)
[2020-06-11] MEDS: Thiamine Hydrochloride 100 MG Tablet PO (08:23)
[2020-06-11] MEDS: Ibuprofen 600 MG Tablet PO (09:27)
[2020-06-11] MEDS: Dicyclomine 10 MG Capsule 20 MG PO (10:49)
[2020-06-11] MEDS: hydrOXYzine PAM 25 MG Capsule 50 MG PO (10:50)
[2020-06-11] MEDS: Ondansetron 8 MG Tablet PO (14:39)
--- NOTE | 2020-06-11 14:58 | PN_ITS ---
Patient Problems: Active and Suspected Problems Acute alcoholic intoxication in alcoholism (blood level 0.08-0.29) (Acute) Upper respiratory infection with cough and congestion (Acute) Subjective: Feels better. Still with abdominal pain, but improving. Tolerating PO. Vitals/I&O's: Vital Signs Temp Pulse Resp BP Pulse Ox 37.0 C 90 16 146/87 H 99 06/11/20 14:32 06/11/20 14:32 06/11/20 14:32 06/11/20 14:32 06/11/20 14:32 Oxygen Delivery Method Room Air Weight: 45.087 kg Body Mass Index (BMI) 18.8 Intake and Output for Last 24 Hours 06/09/20 06/10/20 06/11/20 23:59 23:59 23:59 Intake Total 760 / 760 600 / 600 Output Total 50 / 50 Balance 710 / 710 600 / 600 General: Alert, No apparent distress HEENT: Atraumatic, Normocephalic Oral: Moist Mucosa, No Gingival or Mucosal Lesions/ Ulcerations Neck: No Nodes, Thyroid Normal Size and Texture Lungs: Clear to auscultation, Normal air movement, No rhonchi, No wheeze, No rales Cardiovascular: Regular rate, Regular Rhythm, Normal S1, Normal S2, No murmurs Abdomen: Bowel Sounds Present, Soft, Non Tender, Non-Distended, No Hepato- splenomegaly Extremities: No edema, No Calf Tenderness Skin: No rashes, No breakdown Musculoskeletal: No Tenderness to Palpation of Joints or Extremities, Muscle Wasting Psych/Mental Status: Normal Affect, Appropriate Microbiology Past 72 Hours 06/08/20 16:00 Mucosa - Nasopharyngeal Respiratory Panel (PCR) - Final 06/08/20 14:20 Mucosa - Nose SARS-CoV-2 Antigen (Rapid) - Final Current Medications Acetaminophen (Acetaminophen 500 Mg Tablet) 500 mg PO Q4H PRN PRN PRN Reason: Temp > 100.4 F Last Admin: 06/10/20 20:40 Dose: 500 mg Documented by: Al Hydroxide/Mg Hydroxide (Mag Hydrox/Al Hydrox/Simeth 30 Ml Udc) 30 ml PO Q6H PRN PRN PRN Reason: dyspesia Last Admin: 06/10/20 20:40 Dose: 30 ml Documented by: Bisacodyl (Bisacodyl 10 Mg Suppository) 10 mg RC DAILY PRN PRN Reason: Constipation Dicyclomine HCl (Dicyclomine 10 Mg Capsule) 20 mg PO Q6H PRN PRN PRN Reason: abdominal discomfort Last Admin: 06/11/20 10:49 Dose: 20 mg Documented by: Folic Acid (Folic Acid 1 Mg Tablet) 1 mg PO DAILY@0800 [facility] Last Admin: 06/11/20 08:23 Dose: 1 mg Documented by: Gabapentin (Gabapentin 300 Mg Capsule) 300 mg PO Q8H PRN PRN PRN Reason: moderate to severe anxiety Last Admin: 06/10/20 14:01 Dose: 300 mg Documented by: Hydralazine HCl (Hydralazine 20 Mg/Ml Vial) 5 mg IV Q4H PRN PRN PRN Reason: BLOOD PRESSURE Last Admin: 06/09/20 21:12 Dose: 5 mg Documented by: Hydroxyzine Pamoate (Hydroxyzine Aggie 25 Mg Capsule) 50 mg PO Q4H PRN PRN PRN Reason: mild anxiety Last Admin: 06/11/20 10:50 Dose: 50 mg Documented by: Ibuprofen (Ibuprofen 600 Mg Tablet) 600 mg PO Q8H PRN PRN PRN Reason: PAIN Last Admin: 06/11/20 09:27 Dose: 600 mg Documented by: Loperamide HCl (Loperamide 2 Mg Capsule) 2 mg PO Q4H PRN PRN PRN Reason: LOOSE STOOLS Lorazepam (Lorazepam 1 Mg Tablet) 1 mg PO Q6H [facility]; Taper Stop: 06/13/20 03:30 Last Admin: 06/11/20 09:27 Dose: 1 mg Documented by: Nutritional Formula (Lactose Free) (Ensure Enlive 120 Ml Liquid) 120 ml PO 4X/DAY [facility] Last Admin: 06/11/20 12:29 Dose: 120 ml Documented by: Ondansetron HCl (Ondansetron 8 Mg Tablet) 8 mg PO Q8H PRN PRN PRN Reason: NAUSEA Last Admin: 06/11/20 14:39 Dose: 8 mg Documented by: Senna (Senna Tablet) 2 tablet PO QHS PRN PRN Reason: Constipation Sodium Chloride (0.9% Saline Lock 10 Ml Syringe) 10 - 40 ml IV UD PRN PRN Reason: SALINE FLUSH Last Admin: 06/09/20 21:13 Dose: 20 ml Documented by: Thiamine HCl (Thiamine Hydrochloride 100 Mg Tablet) 100 mg PO DAILYCM [facility] Last Admin: 06/11/20 08:23 Dose: 100 mg Documented by: Trazodone HCl (Trazodone 100 Mg Tablet) 100 mg PO QHS PRN PRN Reason: INSOMNIA Last Admin: 06/10/20 20:40 Dose: 100 mg Documented by: STROKE Vital Signs/Narrative: Vital Signs Temp Pulse Resp BP Pulse Ox 06/11/20 14:32 37.0 C 90 16 146/87 H 99 Medical Necessity - Tobacco Use Smoking Status: Current every day smoker Tobacco Use: Cigarettes Assessment/Plan All Active Problems Acute alcoholic intoxication in alcoholism (blood level 0.08-0.29) (Acute) Upper respiratory infection with cough and congestion (Acute) 1. acute alcohol withdrawal ongoing plan: * continue with lorazepam taper, thiamine, folate, additional agents for other somatic complaints. * [facility] addiction medicine[facility] Plan is to keep pt here until then 2. 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 US negative for pancreatitis Plan: * given absence of obvious pancreatitis, will start PPI. * check records from where much of her care has been in regards to her history of pancreatitis. Pt also states she was seeing a Dr. Reynolds in [facility], so will request records from there as wll. 3. Severe protein calorie malnutrition Seen by nutrition They recommend continued regular diet and Ensure and live at [facility]. Ensure pudding with meals. 4. Transaminitis likely 2/2 alcohol trending down monitor Inpatient E&M: [id number] Subs Hosp L2
[2020-06-11] MEDS: Pantoprazole Sodium 40 MG Tablet PO (15:40)
[2020-06-11] MEDS: hydrALAZINE 20 MG/ML Vial 5 MG IV (17:37)
[2020-06-11] MEDS: 0.9% Saline Lock 10 ML Syringe IV (17:38)
[2020-06-11] MEDS: traZODone 100 MG Tablet PO (20:50)
[2020-06-12] MEDS: Mag Hydrox/Al Hydrox/Simeth 30 ML UDC PO (01:58)
[2020-06-12] MEDS: Ondansetron 8 MG Tablet PO ×2 (01:58→16:50)
[2020-06-12] MEDS: Dicyclomine 10 MG Capsule 20 MG PO ×3 (01:58→16:50)
[2020-06-12] MEDS: LORazepam 1 MG Tablet 0.5 MG PO ×4 (03:35→21:31)
[2020-06-12 03:40] VITALS: BP 139/67; PULSE 84; RESP 16; TEMP 36.8; O2SAT 96
[2020-06-12 09:36] VITALS: BP 144/73; PULSE 89; RESP 18; TEMP 36.5; O2SAT 100
[2020-06-12] MEDS: hydrOXYzine PAM 25 MG Capsule 50 MG PO ×2 (09:46→15:11)
[2020-06-12] MEDS: Ibuprofen 600 MG Tablet PO ×2 (09:46→17:48)
[2020-06-12] MEDS: Folic Acid 1 MG Tablet PO (09:47)
[2020-06-12] MEDS: Thiamine Hydrochloride 100 MG Tablet PO (09:47)
[2020-06-12] MEDS: Propranolol 10 MG Tablet 20 MG PO ×2 (11:34→21:31)
[2020-06-12] MEDS: Pantoprazole Sodium 40 MG Tablet PO (11:34)
--- NOTE | 2020-06-12 13:37 | NURSING ---
Assisted patient into the bathroom to void. patient with dry heaves and states is having some abdominal cramping as well at times. pt denies having diarrhea. once back into bed, pt states the nausea is slightly improved. denies further needs. bed exit back on.
--- NOTE | 2020-06-12 13:51 | PN_ITS ---
Patient Problems: Active and Suspected Problems Acute alcoholic intoxication in alcoholism (blood level 0.08-0.29) (Acute) Upper respiratory infection with cough and congestion (Acute) Subjective: States that she was talking with her son. I asked she was just on the phone with, she said that he was just in the room. He was not. Still with abdominal pain but tolerating diet. Vitals/I&O's: Vital Signs Temp Pulse Resp BP Pulse Ox 36.5 C L 89 18 144/73 H 100 06/12/20 09:36 06/12/20 09:36 06/12/20 09:36 06/12/20 09:36 06/12/20 09:36 Oxygen Delivery Method Room Air Weight: 45.087 kg Body Mass Index (BMI) 18.8 Intake and Output for Last 24 Hours 06/10/20 06/11/20 06/12/20 23:59 23:59 23:59 Intake Total 600 / 600 1050 / 1050 Balance 600 / 600 1050 / 1050 General: Alert, No apparent distress HEENT: Atraumatic, Normocephalic Oral: Moist Mucosa, No Gingival or Mucosal Lesions/ Ulcerations Neck: No Nodes, Thyroid Normal Size and Texture Lungs: Clear to auscultation, Normal air movement, No rhonchi, No wheeze, No rales Cardiovascular: Regular rate, Regular Rhythm, Normal S1, Normal S2 Abdomen: Bowel Sounds Present, Soft, Non Tender, Non-Distended, No Hepato- splenomegaly Extremities: No edema, No Calf Tenderness Skin: No rashes, No breakdown Psych/Mental Status: Normal Affect, Appropriate Current Medications Acetaminophen (Acetaminophen 500 Mg Tablet) 500 mg PO Q4H PRN PRN PRN Reason: Temp > 100.4 F Last Admin: 06/10/20 20:40 Dose: 500 mg Documented by: Al Hydroxide/Mg Hydroxide (Mag Hydrox/Al Hydrox/Simeth 30 Ml Udc) 30 ml PO Q6H PRN PRN PRN Reason: dyspesia Last Admin: 06/12/20 01:58 Dose: 30 ml Documented by: Bisacodyl (Bisacodyl 10 Mg Suppository) 10 mg RC DAILY PRN PRN Reason: Constipation Dicyclomine HCl (Dicyclomine 10 Mg Capsule) 20 mg PO Q6H PRN PRN PRN Reason: abdominal discomfort Last Admin: 06/12/20 09:46 Dose: 20 mg Documented by: Folic Acid (Folic Acid 1 Mg Tablet) 1 mg PO DAILY@0800 [facility] Last Admin: 06/12/20 09:47 Dose: 1 mg Documented by: Gabapentin (Gabapentin 300 Mg Capsule) 300 mg PO Q8H PRN PRN PRN Reason: moderate to severe anxiety Last Admin: 06/10/20 14:01 Dose: 300 mg Documented by: Hydralazine HCl (Hydralazine 20 Mg/Ml Vial) 5 mg IV Q4H PRN PRN PRN Reason: BLOOD PRESSURE Last Admin: 06/11/20 17:37 Dose: 5 mg Documented by: Hydroxyzine Pamoate (Hydroxyzine Aggie 25 Mg Capsule) 50 mg PO Q4H PRN PRN PRN Reason: mild anxiety Last Admin: 06/12/20 09:46 Dose: 50 mg Documented by: Ibuprofen (Ibuprofen 600 Mg Tablet) 600 mg PO Q8H PRN PRN PRN Reason: PAIN Last Admin: 06/12/20 09:46 Dose: 600 mg Documented by: Loperamide HCl (Loperamide 2 Mg Capsule) 2 mg PO Q4H PRN PRN PRN Reason: LOOSE STOOLS Lorazepam (Lorazepam 1 Mg Tablet) 0.5 mg PO Q6H [facility]; Taper Stop: 06/13/20 03:30 Last Admin: 06/12/20 09:46 Dose: 0.5 mg Documented by: Nutritional Formula (Lactose Free) (Ensure Enlive 120 Ml Liquid) 120 ml PO 4X/DAY [facility] Last Admin: 06/12/20 09:48 Dose: Not Given Documented by: Ondansetron HCl (Ondansetron 8 Mg Tablet) 8 mg PO Q8H PRN PRN PRN Reason: NAUSEA Last Admin: 06/12/20 01:58 Dose: 8 mg Documented by: Pancrelipase (Creon 12,[address] Capsule) 3 [facility] Last Admin: 06/12/20 11:34 Dose: 3 capsule Documented by: Pantoprazole Sodium (Pantoprazole Sodium 40 Mg Tablet) 40 mg PO DAILY [facility] Last Admin: 06/12/20 11:34 Dose: 40 mg Documented by: Propranolol HCl (Propranolol 10 Mg Tablet) 20 mg PO BID [facility] Last Admin: 03/19/21 11:34 Dose: 20 mg Documented by: Senna (Senna Tablet) 2 tablet PO QHS PRN PRN Reason: Constipation Sodium Chloride (0.9% Saline Lock 10 Ml Syringe) 10 - 40 ml IV UD PRN PRN Reason: SALINE FLUSH Last Admin: 06/11/20 17:38 Dose: 20 ml Documented by: Thiamine HCl (Thiamine Hydrochloride 100 Mg Tablet) 100 mg PO DAILYCM [facility] Last Admin: 06/12/20 09:47 Dose: 100 mg Documented by: Trazodone HCl (Trazodone 100 Mg Tablet) 100 mg PO QHS PRN PRN Reason: INSOMNIA Last Admin: 06/11/20 20:50 Dose: 100 mg Documented by: Medical Necessity - Tobacco Use Smoking Status: Current every day smoker Tobacco Use: Cigarettes Assessment/Plan All Active Problems Acute alcoholic intoxication in alcoholism (blood level 0.08-0.29) (Acute) Upper respiratory infection with cough and congestion (Acute) 1. acute alcohol withdrawal ongoing. More confused today. Concerned that may be going through more severe withdrawal. plan: * continue with lorazepam taper, thiamine, folate, additional agents for other somatic complaints. * DW addiction medicine, they will be able to [facility] residential on 06.15. Plan is to keep pt here until then 2. 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 US negative for pancreatitis Plan: * given absence of obvious pancreatitis, will start PPI. * reviewed limited records. H/O chronic pancreatitis. * resume pancreatic enzymes. 3. Severe protein calorie malnutrition Seen by nutrition They recommend continued regular diet and Ensure and live at [facility]. Ensure pudding with meals. 4. Transaminitis likely 2/2 alcohol trending down monitor Inpatient E&M: [id number] Subs Hosp L2
[2020-06-12 15:05] VITALS: BP 137/74; PULSE 90; RESP 16; TEMP 36.8; O2SAT 100
[2020-06-12] MEDS: Gabapentin 300 MG Capsule PO (16:50)
[2020-06-12 21:20] VITALS: BP 143/64; PULSE 83; RESP 16; TEMP 36.8; O2SAT 96
[2020-06-12] MEDS: traZODone 100 MG Tablet PO (21:31)
[2020-06-13 04:03] VITALS: BP 127/58; PULSE 65; RESP 16; TEMP 36.8; O2SAT 95
[2020-06-13] MEDS: hydrOXYzine PAM 25 MG Capsule 50 MG PO ×3 (04:04→16:09)
[2020-06-13] MEDS: Dicyclomine 10 MG Capsule 20 MG PO ×2 (04:04→16:09)
[2020-06-13] MEDS: Ibuprofen 600 MG Tablet PO ×3 (04:05→21:40)
[2020-06-13] MEDS: Ondansetron 8 MG Tablet PO ×2 (04:05→18:11)
[2020-06-13 08:35] VITALS: BP 128/66; PULSE 69; RESP 16; TEMP 36.4; O2SAT 99
[2020-06-13] MEDS: Thiamine Hydrochloride 100 MG Tablet PO (08:40)
[2020-06-13] MEDS: Propranolol 10 MG Tablet 20 MG PO ×2 (08:40→21:42)
[2020-06-13] MEDS: Pantoprazole Sodium 40 MG Tablet PO (08:40)
[2020-06-13] MEDS: Folic Acid 1 MG Tablet PO (08:40)
--- NOTE | 2020-06-13 11:03 | PN_ITS ---
Patient Problems: Active and Suspected Problems Acute alcoholic intoxication in alcoholism (blood level 0.08-0.29) (Acute) Upper respiratory infection with cough and congestion (Acute) Subjective: Feeling better. Tolerating PO. Still with abdominal pain, but continues to improve. Vitals/I&O's: Vital Signs Temp Pulse Resp BP Pulse Ox 36.4 C L 69 16 128/66 H 99 06/13/20 08:35 06/13/20 08:35 06/13/20 08:35 06/13/20 08:35 06/13/20 08:35 Oxygen Delivery Method Room Air Weight: 45.087 kg Body Mass Index (BMI) 18.8 Intake and Output for Last 24 Hours 06/11/20 06/12/20 06/13/20 23:59 23:59 23:59 Intake Total 1750 / 1950 450 / 450 Balance 1750 / 1950 450 / 450 General: Alert, No apparent distress HEENT: Atraumatic, Normocephalic Oral: Moist Mucosa, No Gingival or Mucosal Lesions/ Ulcerations Neck: No Nodes, Thyroid Normal Size and Texture Lungs: Clear to auscultation, Normal air movement, No rhonchi, No wheeze Cardiovascular: Regular rate, Regular Rhythm, Normal S1, Normal S2, No murmurs Abdomen: Bowel Sounds Present, Soft, Non Tender, Non-Distended, No Hepato- splenomegaly Extremities: No edema, No Calf Tenderness Psych/Mental Status: Normal Affect, Appropriate Current Medications Acetaminophen (Acetaminophen 500 Mg Tablet) 500 mg PO Q4H PRN PRN PRN Reason: Temp > 100.4 F Last Admin: 06/10/20 20:40 Dose: 500 mg Documented by: Al Hydroxide/Mg Hydroxide (Mag Hydrox/Al Hydrox/Simeth 30 Ml Udc) 30 ml PO Q6H PRN PRN PRN Reason: dyspesia Last Admin: 06/12/20 01:58 Dose: 30 ml Documented by: Bisacodyl (Bisacodyl 10 Mg Suppository) 10 mg RC DAILY PRN PRN Reason: Constipation Dicyclomine HCl (Dicyclomine 10 Mg Capsule) 20 mg PO Q6H PRN PRN PRN Reason: abdominal discomfort Last Admin: 06/13/20 04:04 Dose: 20 mg Documented by: Folic Acid (Folic Acid 1 Mg Tablet) 1 mg PO DAILY@0800 DEQUAN Last Admin: 06/13/20 08:40 Dose: 1 mg Documented by: Gabapentin (Gabapentin 300 Mg Capsule) 300 mg PO Q8H PRN PRN PRN Reason: moderate to severe anxiety Last Admin: 06/12/20 16:50 Dose: 300 mg Documented by: Hydralazine HCl (Hydralazine 20 Mg/Ml Vial) 5 mg IV Q4H PRN PRN PRN Reason: BLOOD PRESSURE Last Admin: 06/11/20 17:37 Dose: 5 mg Documented by: Hydroxyzine Pamoate (Hydroxyzine Aggie 25 Mg Capsule) 50 mg PO Q4H PRN PRN PRN Reason: mild anxiety Last Admin: 06/13/20 08:40 Dose: 50 mg Documented by: Ibuprofen (Ibuprofen 600 Mg Tablet) 600 mg PO Q8H PRN PRN PRN Reason: PAIN Last Admin: 06/13/20 04:05 Dose: 600 mg Documented by: Loperamide HCl (Loperamide 2 Mg Capsule) 2 mg PO Q4H PRN PRN PRN Reason: LOOSE STOOLS Nutritional Formula (Lactose Free) (Ensure Enlive 120 Ml Liquid) 120 ml PO 4X/DAY [facility] Last Admin: 06/13/20 08:40 Dose: 120 ml Documented by: Ondansetron HCl (Ondansetron 8 Mg Tablet) 8 mg PO Q8H PRN PRN PRN Reason: NAUSEA Last Admin: 06/13/20 04:05 Dose: 8 mg Documented by: Pancrelipase (Creon 12,[address] Capsule) [facility] Last Admin: 06/13/20 08:40 Dose: 3 capsule Documented by: Pantoprazole Sodium (Pantoprazole Sodium 40 Mg Tablet) 40 mg PO DAILY [facility] Last Admin: 06/13/20 08:40 Dose: 40 mg Documented by: Propranolol HCl (Propranolol 10 Mg Tablet) 20 mg PO BID [facility] Last Admin: 06/13/20 08:40 Dose: 20 mg Documented by: Senna (Senna Tablet) 2 tablet PO QHS PRN PRN Reason: Constipation Sodium Chloride (0.9% Saline Lock 10 Ml Syringe) 10 - 40 ml IV UD PRN PRN Reason: SALINE FLUSH Last Admin: 06/11/20 17:38 Dose: 20 ml Documented by: Thiamine HCl (Thiamine Hydrochloride 100 Mg Tablet) [facility] Last Admin: 06/13/20 08:40 Dose: 100 mg Documented by: Trazodone HCl (Trazodone 100 Mg Tablet) 100 mg PO QHS PRN PRN Reason: INSOMNIA Last Admin: 06/12/20 21:31 Dose: 100 mg Documented by: STROKE Vital Signs/Narrative: Vital Signs Temp Pulse Resp BP Pulse Ox 06/13/20 08:35 36.4 C L 69 16 128/66 H 99 Medical Necessity - Tobacco Use Smoking Status: Current every day smoker Tobacco Use: Cigarettes Assessment/Plan All Active Problems Acute alcoholic intoxication in alcoholism (blood level 0.08-0.29) (Acute) Upper respiratory infection with cough and congestion (Acute) 1. acute alcohol withdrawal ongoing. improved today plan: * completed lorazepam taper * continue with lthiamine, folate, additional agents for other somatic complaints. * DW addiction medicine, they will be able to [facility] residential on 06.15. Plan is to keep pt here until then 2. 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 US negative for pancreatitis Plan: * given absence of obvious pancreatitis, will start PPI. * reviewed limited records. H/O chronic pancreatitis. * resume pancreatic enzymes. 3. Severe protein calorie malnutrition Seen by nutrition They recommend continued regular diet and Ensure and live at [facility]. Ensure pudding with meals. 4. Transaminitis likely 2/2 alcohol trending down monitor 5. VTE prophylaxis: ambulatory Inpatient E&M: 30817 [facility] Hosp L2
[2020-06-13 11:19] VITALS: BP 111/60; PULSE 77; RESP 24; TEMP 36.7; O2SAT 99
--- NOTE | 2020-06-13 11:25 | EKG12_ITS ---
Test Reason : CP Blood Pressure : / mmHG Vent. Rate : 075 BPM Atrial Rate : 075 BPM P-R Int : 158 ms QRS Dur : 068 ms QT Int : 370 ms P-R-T Axes : 043 023 042 degrees QTc Int : 413 ms Normal sinus rhythm Normal ECG When compared with ECG of 08-JUN-2020 23:56, No significant change was found Confirmed by ALIYAH WRIGHT, SAMANTA ([id number]), research editor KEISHA NYE ([id number]) on 06/16/2020 9:18:26 AM Referred By: SISSY Confirmed By:SAMANTA LY MD
[2020-06-13] MEDS: Gabapentin 300 MG Capsule PO (12:03)
[2020-06-13] MEDS: Mag Hydrox/Al Hydrox/Simeth 30 ML UDC PO (16:09)
[2020-06-13 16:13] VITALS: BP 152/75; PULSE 77; RESP 16; TEMP 36.7; O2SAT 99
[2020-06-13] MEDS: Ciprofloxacin 0.3% 2.5ml Bottle 2 DRP RIGHT EYE ×2 (18:46→21:41)
[2020-06-13 21:02] VITALS: BP 154/72; PULSE 80; RESP 16; TEMP 36.9; O2SAT 99
[2020-06-13] MEDS: traZODone 100 MG Tablet PO (21:40)
[2020-06-14 01:43] VITALS: BP 141/81; PULSE 80; RESP 15; TEMP 36.6; O2SAT 100
[2020-06-14] MEDS: Ciprofloxacin 0.3% 2.5ml Bottle 2 DRP RIGHT EYE ×5 (06:10→20:39)
[2020-06-14] MEDS: Dicyclomine 10 MG Capsule 20 MG PO (06:10)
[2020-06-14 07:54] VITALS: BP 120/62; PULSE 72; RESP 16; TEMP 36.6; O2SAT 99
[2020-06-14 07:59] VITALS: BP 120/62
[2020-06-14] MEDS: Folic Acid 1 MG Tablet PO (08:04)
[2020-06-14] MEDS: Thiamine Hydrochloride 100 MG Tablet PO (08:04)
[2020-06-14] MEDS: Propranolol 10 MG Tablet 20 MG PO ×2 (08:05→20:40)
[2020-06-14] MEDS: Pantoprazole Sodium 40 MG Tablet PO (08:05)
[2020-06-14] MEDS: Ondansetron 8 MG Tablet PO (08:32)
--- NOTE | 2020-06-14 09:33 | PCM.PN.HOSP ---
Patient Problems: Active and Suspected Problems Acute alcoholic intoxication in alcoholism (blood level 0.08-0.29) (Acute) Upper respiratory infection with cough and congestion (Acute) Subjective: Feeling better. Had some vomiting last night, but currently better. Vitals/I&O's: Vital Signs Temp Pulse Resp BP Pulse Ox 36.6 C 72 16 120/62 99 06/14/20 07:54 06/14/20 07:54 06/14/20 07:54 06/14/20 07:59 06/14/20 07:54 Oxygen Delivery Method Room Air Weight: 45.087 kg Body Mass Index (BMI) 18.8 Intake and Output for Last 24 Hours 06/12/20 06/13/20 06/14/20 23:59 23:59 23:59 Intake Total 1750 / 1950 1750 / 1750 800 / 800 Balance 1750 / 1950 1750 / 1750 800 / 800 General: Alert, No apparent distress HEENT: Atraumatic, Normocephalic Oral: Moist Mucosa, No Gingival or Mucosal Lesions/ Ulcerations Neck: No Nodes, Thyroid Normal Size and Texture Lungs: Clear to auscultation, Normal air movement, No rhonchi, No wheeze Cardiovascular: Regular rate, Regular Rhythm, Normal S1, Normal S2, No murmurs Abdomen: Bowel Sounds Present, Soft, Non-Distended, Tender - epigastric Extremities: No edema, No Calf Tenderness Psych/Mental Status: Normal Affect, Appropriate Laboratory Results 06/13/20 12:11: Troponin I < 0.015 06/13/20 14:30: Troponin I < 0.015 06/13/20 17:25: Troponin I < 0.015 Current Medications Acetaminophen (Acetaminophen 500 Mg Tablet) 500 mg PO Q4H PRN PRN PRN Reason: Temp > 100.4 F Last Admin: 06/10/20 20:40 Dose: 500 mg Documented by: Al Hydroxide/Mg Hydroxide (Mag Hydrox/Al Hydrox/Simeth 30 Ml Udc) 30 ml PO Q6H PRN PRN PRN Reason: dyspesia Last Admin: 06/13/20 16:09 Dose: 30 ml Documented by: Bisacodyl (Bisacodyl 10 Mg Suppository) 10 mg RC DAILY PRN PRN Reason: Constipation Ciprofloxacin HCl (Ciprofloxacin 0.3% 2.5ml Bottle) 2 drop RIGHT EYE Q4HWA [facility] Last Admin: 06/14/20 06:10 Dose: 2 drop Documented by: Dicyclomine HCl (Dicyclomine 10 Mg Capsule) 20 mg PO Q6H PRN PRN PRN Reason: abdominal discomfort Last Admin: 06/14/20 06:10 Dose: 20 mg Documented by: Folic Acid (Folic Acid 1 Mg Tablet) 1 mg PO DAILY@0800 [facility] Last Admin: 06/14/20 08:04 Dose: 1 mg Documented by: Gabapentin (Gabapentin 300 Mg Capsule) 300 mg PO Q8H PRN PRN PRN Reason: moderate to severe anxiety Last Admin: 06/13/20 12:03 Dose: 300 mg Documented by: Hydralazine HCl (Hydralazine 20 Mg/Ml Vial) 5 mg IV Q4H PRN PRN PRN Reason: BLOOD PRESSURE Last Admin: 06/11/20 17:37 Dose: 5 mg Documented by: Hydroxyzine Pamoate (Hydroxyzine Aggie 25 Mg Capsule) 50 mg PO Q4H PRN PRN PRN Reason: mild anxiety Last Admin: 06/13/20 16:09 Dose: 50 mg Documented by: Ibuprofen (Ibuprofen 600 Mg Tablet) 600 mg PO Q8H PRN PRN PRN Reason: PAIN Last Admin: 06/13/20 21:40 Dose: 600 mg Documented by: Loperamide HCl (Loperamide 2 Mg Capsule) 2 mg PO Q4H PRN PRN PRN Reason: LOOSE STOOLS Nutritional Formula (Lactose Free) (Ensure Enlive 120 Ml Liquid) 120 ml PO 4X/DAY [facility] Last Admin: 06/14/20 08:07 Dose: 120 ml Documented by: Ondansetron HCl (Ondansetron 8 Mg Tablet) 8 mg PO Q8H PRN PRN PRN Reason: NAUSEA Last Admin: 06/14/20 08:32 Dose: 8 mg Documented by: Pancrelipase (Creon 12,[address] Capsule) [facility] Last Admin: 06/14/20 08:04 Dose: 3 capsule Documented by: Pantoprazole Sodium (Pantoprazole Sodium 40 Mg Tablet) 40 mg PO DAILY [facility] Last Admin: 06/14/20 08:05 Dose: 40 mg Documented by: Propranolol HCl (Propranolol 10 Mg Tablet) 20 mg PO BID [facility] Last Admin: 06/14/20 08:05 Dose: 20 mg Documented by: Senna (Senna Tablet) 2 tablet PO QHS PRN PRN Reason: Constipation Sodium Chloride (0.9% Saline Lock 10 Ml Syringe) 10 - 40 ml IV UD PRN PRN Reason: SALINE FLUSH Last Admin: 06/11/20 17:38 Dose: 20 ml Documented by: Thiamine HCl (Thiamine Hydrochloride 100 Mg Tablet) 100 mg PO DAILYCM DEQUAN Last Admin: 06/14/20 08:04 Dose: 100 mg Documented by: Trazodone HCl (Trazodone 100 Mg Tablet) 100 mg PO QHS PRN PRN Reason: INSOMNIA Last Admin: 06/13/20 21:40 Dose: 100 mg Documented by: STROKE Vital Signs/Narrative: Vital Signs Temp Pulse Resp BP Pulse Ox 06/14/20 07:59 120/62 06/14/20 07:54 36.6 C 72 16 120/62 99 Medical Necessity - Tobacco Use Smoking Status: Current every day smoker Tobacco Use: Cigarettes Assessment/Plan All Active Problems Acute alcoholic intoxication in alcoholism (blood level 0.08-0.29) (Acute) Upper respiratory infection with cough and congestion (Acute) 59-year-old female presents with acute alcohol withdrawal. Patient was treated with a lorazepam taper which she has since completed. Patient's alcohol withdrawal was uncomplicated but she did have a transient period. Where she was more confused and thought her son was there when he clearly was not but has remained stable and not developed any severe withdrawal symptoms or delirium tremens. Patient will be discharged to [facility] residential program on the and has remained in the hospital so that she could transition there as she is from the [facility]. She did and continues to have abdominal pain. This is more of a chronic process she has chronic pancreatitis. Lipase was normal and ultrasound was negative for acute pancreatitis. Patient has been able to tolerate diet. Was able to review records from [facility] about her prior pancreatitis. Patient continue with pancreatic enzymes and to avoid alcohol. 1. acute alcohol withdrawal resolved during this hospitalization plan: completed lorazepam taper continue with thiamine, folate, additional agents for other somatic complaints. DW addiction medicine, they will be able to [facility] residential on 06.15. Plan is to keep pt here until then 2. 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 US negative for pancreatitis Plan: given absence of obvious pancreatitis, will start PPI. reviewed limited records. H/O chronic pancreatitis. resume pancreatic enzymes. 3. Severe protein calorie malnutrition Seen by nutrition They recommend continued regular diet and Ensure and live at [facility]. Ensure pudding with meals. 4. Transaminitis likely 2/2 alcohol trending down monitor 5. Chronic pancreatitis 2/2 alcohol on pancreatic enzymes chronically 6. VTE prophylaxis: ambulatory Inpatient E&M: 36705 [facility] Hosp L2
[2020-06-14 13:32] VITALS: BP 137/59; PULSE 76; RESP 16; TEMP 37.1; O2SAT 99
[2020-06-14] MEDS: hydrOXYzine PAM 25 MG Capsule 50 MG PO ×2 (15:10→20:39)
[2020-06-14] MEDS: Ibuprofen 600 MG Tablet PO (15:10)
[2020-06-14 20:30] VITALS: BP 157/79; PULSE 76; RESP 16; TEMP 36.6; O2SAT 100
[2020-06-14] MEDS: Acetaminophen 500 MG Tablet PO (20:38)
[2020-06-14] MEDS: traZODone 100 MG Tablet PO (20:39)
[2020-06-15 02:30] VITALS: BP 148/76; PULSE 66; RESP 16; TEMP 36.8; O2SAT 100
[2020-06-15] MEDS: Ciprofloxacin 0.3% 2.5ml Bottle 2 DRP RIGHT EYE ×2 (05:11→09:30)
[2020-06-15 07:30] VITALS: BP 127/67; PULSE 64; RESP 16; TEMP 36.7; O2SAT 99
--- NOTE | 2020-06-15 07:31 | DCINST_ITS ---
- Discharge Diagnoses Current Active Problems: Current Active and Chronic Problems History of alcoholism (Chronic) History of pneumonia (Chronic) Acute alcoholic intoxication in alcoholism (blood level 0.08-0.29) (Acute) Neutropenia due to infection (Chronic) Upper respiratory infection with cough and congestion (Acute) Cocaine abuse (Chronic) You will use the following diet at home:: Cardiac Your food should be the consistency of: Regular Your liquids should be the consistency of: Regular/Thin Discharge Activity: Return to Normal Activity Allergies/Adverse Reactions: Allergies lactose Adverse Reaction (Verified 06/09/20 12:07) Food Allergy Medications to take at Discharge Lipase/Protease/Amylase [Creon Dr 36,000 Units Capsule] 36,000 units PO 4X/DAY 06/08/20 Propranolol HCl [Inderal (Beta Shazia)] 20 mg PO BID 06/08/20 Simvastatin [Zocor] 20 mg PO QHS 06/08/20 Ciprofloxacin 0.3% [Ciloxan] 2 drop RIGHT EYE Q4HWA #1 bottle 06/15/20 The following prescriptions were given: Ciprofloxacin 0.3% [Ciloxan] 2 drop RIGHT EYE Q4HWA #1 bottle Prescription Printed Primary Care Physician: Jose Doctor,Out of [NON-STAFF] - Please follow up with your Primary Care Physician in: 1-2 weeks Test Results: Test results from this visit will be discussed in further detail at your follow- up appointment, if applicable.
[2020-06-15] MEDS: Acetaminophen 500 MG Tablet PO (07:34)
[2020-06-15] MEDS: hydrOXYzine PAM 25 MG Capsule 50 MG PO (07:35)
[2020-06-15] MEDS: Folic Acid 1 MG Tablet PO (07:36)
[2020-06-15] MEDS: Thiamine Hydrochloride 100 MG Tablet PO (07:36)
[2020-06-15] MEDS: Propranolol 10 MG Tablet 20 MG PO (09:31)
[2020-06-15] MEDS: Pantoprazole Sodium 40 MG Tablet PO (09:33)
--- NOTE | 2020-06-15 09:53 | DS.PCM_ITS ---
Discharge Date and Diagnosis - Problem List Patient Problems: Active and Suspected Problems Acute alcoholic intoxication in alcoholism (blood level 0.08-0.29) (Acute) Upper respiratory infection with cough and congestion (Acute) Date of Admission: 06/08/20 Date of Discharge: 06/15/20 - Primary Discharge Diagnosis Acute Problems: Active Problems Acute alcoholic intoxication in alcoholism (blood level 0.08-0.29) (Acute) Upper respiratory infection with cough and congestion (Acute) - Secondary Discharge Diagnosis Chronic Problems: Chronic Problems History of alcoholism (Chronic) History of pneumonia (Chronic) Neutropenia due to infection (Chronic) Cocaine abuse (Chronic) Hospital Course and Treatment Imaging Results: STUDY: X-RAY CHEST REASON FOR EXAM: Female, 59 years old. COUGH TECHNIQUE: PA and lateral views of the chest. COMPARISON: None. FINDINGS: Cardiac silhouette unremarkable. Pulmonary vascularity unremarkable. Aorta calcified. No focal patchy airspace opacities. No pleural effusions. COPD/hyperaeration. Upper abdomen unremarkable. Osseous structures demineralized with degenerative features. No pneumothorax. RAD/Chest PA and Lateral IMPRESSION: No acute cardiopulmonary findings 180 Operations: None Procedures: None Summary of Care Provided: Ms. Chen is a 59-year-old -H[place]ian female presented to the emergency department on 06/08/2020 requesting alcohol detox. At that time she reported she drank approximately a 12 pack a day with her last drink being the morning of admission. She also admitted to intermittent cocaine use and marijuana use. She reported at that time she had been through detox programs previously but it has been a while. She currently resides in the [facility] but her daughter drove her to [place] for the detox program. She was treated with a lorazepam taper and overall her detox was uncomplicated. She had some confusion initially but stabilized quickly. She had intermittent abdominal pain which is apparently a chronic process for her as she has chronic pancreatitis and is on Creon. She had an ultrasound of her abdomen which was normal and a lipase that was negat carolin. She was also found to have right eye bacterial conjunctivitis for which she was placed on ciprofloxacin eyedrops. These will be continued for completion of 7 days. On the day of discharge she was tolerating p.o. diet and having no pain complaints. She is stable for discharge and will go to the [facility] residential program today. Patient informed me that she will need scripts for her chronic medications. She was given a 1 month supply for all of her medications and instructed to follow-up with her primary care physician after discharge from [facility]. Discharge diagnoses 1. Acute alcohol withdrawal 2. Chronic abdominal pain secondary to chronic pancreatitis 3. Transaminitis-resolved 4. Severe protein calorie malnutrition 5. Leukopenia 6. Alcohol dependence 7. Cocaine abuse 8. Hypertension 9. Hyperlipidemia 10. OD serial conjunctivitis Discharge time greater than 35 minutes Patient Problems: Active and Suspected Problems Acute alcoholic intoxication in alcoholism (blood level 0.08-0.29) (Acute) Upper respiratory infection with cough and congestion (Acute) - Physical Exam Vitals/I&O's: Vital Signs Temp Pulse Resp BP Pulse Ox 98.0 F 64 16 127/67 H 99 06/15/20 07:30 06/15/20 07:30 06/15/20 07:30 06/15/20 07:30 06/15/20 07:30 Oxygen Delivery Method Room Air Weight: 45.087 kg Body Mass Index (BMI) 18.8 Intake and Output for Last 24 Hours 06/13/20 06/14/20 06/15/20 23:59 23:59 23:59 Intake Total 1750 / 1750 800 / 1100 700 / 700 Balance 1750 / 1750 800 / 1100 700 / 700 General: Alert, Oriented x3, Cooperative, No apparent distress, - - Thin -H[place]ian female sitting up in bed, eating breakfast and watching TV, nursing at bedside HEENT: Atraumatic, PERRLA, EOMI, Normocephalic, EAC Clear Oral: Moist Mucosa, No Gingival or Mucosal Lesions/ Ulcerations Neck: Supple, No JVD, Trachea Midline, Thyroid Normal Size and Texture Lungs: Clear to auscultation, No rhonchi, No wheeze, No rales, Diminished - Diffusely Cardiovascular: Regular rate, Regular Rhythm, Normal S1, Normal S2, No murmurs, No Ectopic Activity, No rub noted, No Gallop Abdomen: Bowel Sounds Present, Soft, Non Tender, Non-Distended, - - Thin Extremities: No clubbing, No cyanosis, No edema, Capillary Refill Less than 3 Seconds, Peripheral Pulses Normal Skin: No rashes, No breakdown Musculoskeletal: No Tenderness to Palpation of Joints or Extremities, No Muscle Wasting, Arthritic Changes Lymphatic: No Cervical, Supraclavicular, or Inguinal Adenopathy Neurological: Cranial nerves II-XII grossly intact, Neuro grossly intact, Muscle tone normal, Coordination normal Psych/Mental Status: Normal Affect, Appropriate Current Medications Acetaminophen (Acetaminophen 500 Mg Tablet) 500 mg PO Q4H PRN PRN PRN Reason: Temp > 100.4 F Last Admin: 06/15/20 07:34 Dose: 500 mg Documented by: Al Hydroxide/Mg Hydroxide (Mag Hydrox/Al Hydrox/Simeth 30 Ml Udc) 30 ml PO Q6H PRN PRN PRN Reason: dyspesia Last Admin: 06/13/20 16:09 Dose: 30 ml Documented by: Bisacodyl (Bisacodyl 10 Mg Suppository) 10 mg RC DAILY PRN PRN Reason: Constipation Ciprofloxacin HCl (Ciprofloxacin 0.3% 2.5ml Bottle) 2 drop RIGHT EYE Q4HWA [facility] Last Admin: 06/15/20 09:30 Dose: 2 drop Documented by: Dicyclomine HCl (Dicyclomine 10 Mg Capsule) 20 mg PO Q6H PRN PRN PRN Reason: abdominal discomfort Last Admin: 06/14/20 06:10 Dose: 20 mg Documented by: Folic Acid (Folic Acid 1 Mg Tablet) 1 mg PO DAILY@0800 [facility] Last Admin: 06/15/20 07:36 Dose: 1 mg Documented by: Gabapentin (Gabapentin 300 Mg Capsule) 300 mg PO Q8H PRN PRN PRN Reason: moderate to severe anxiety Last Admin: 06/13/20 12:03 Dose: 300 mg Documented by: Hydralazine HCl (Hydralazine 20 Mg/Ml Vial) 5 mg IV Q4H PRN PRN PRN Reason: BLOOD PRESSURE Last Admin: 06/11/20 17:37 Dose: 5 mg Documented by: Hydroxyzine Pamoate (Hydroxyzine Aggie 25 Mg Capsule) 50 mg PO Q4H PRN PRN PRN Reason: mild anxiety Last Admin: 06/15/20 07:35 Dose: 50 mg Documented by: Ibuprofen (Ibuprofen 600 Mg Tablet) 600 mg PO Q8H PRN PRN PRN Reason: PAIN Last Admin: 06/14/20 15:10 Dose: 600 mg Documented by: Loperamide HCl (Loperamide 2 Mg Capsule) 2 mg PO Q4H PRN PRN PRN Reason: LOOSE STOOLS Nutritional Formula (Lactose Free) (Ensure Enlive 120 Ml Liquid) 120 ml PO 4X/DAY [facility] Last Admin: 06/15/20 09:35 Dose: 120 ml Documented by: Ondansetron HCl (Ondansetron 8 Mg Tablet) 8 mg PO Q8H PRN PRN PRN Reason: NAUSEA Last Admin: 06/14/20 08:32 Dose: 8 mg Documented by: Pancrelipase (Creon 12,[address] Capsule) [facility] Last Admin: 06/15/20 07:36 Dose: 3 capsule Documented by: Pantoprazole Sodium (Pantoprazole Sodium 40 Mg Tablet) 40 mg PO DAILY [facility] Last Admin: 06/15/20 09:33 Dose: 40 mg Documented by: Propranolol HCl (Propranolol 10 Mg Tablet) 20 mg PO BID [facility] Last Admin: 06/15/20 09:31 Dose: 20 mg Documented by: Senna (Senna Tablet) 2 tablet PO QHS PRN PRN Reason: Constipation Sodium Chloride (0.9% Saline Lock 10 Ml Syringe) 10 - 40 ml IV UD PRN PRN Reason: SALINE FLUSH Last Admin: 06/11/20 17:38 Dose: 20 ml Documented by: Thiamine HCl (Thiamine Hydrochloride 100 Mg Tablet) [facility] Last Admin: 06/15/20 07:36 Dose: 100 mg Documented by: Trazodone HCl (Trazodone 100 Mg Tablet) 100 mg PO QHS PRN PRN Reason: INSOMNIA Last Admin: 06/14/20 20:39 Dose: 100 mg Documented by: Discharge Activity: Return to Normal Activity Home Medications: Medications to take at Discharge Ciprofloxacin 0.3% [Ciloxan] 2 drop RIGHT EYE Q4HWA #1 bottle 06/15/20 Lipase/Protease/Amylase [Creon Dr 36,000 Units Capsule] 36,000 units PO 4X/DAY #120 06/15/20 Propranolol HCl [Inderal (Beta Shazia)] 20 mg PO BID #60 tablet 06/15/20 Simvastatin [Zocor] 20 mg PO QHS #30 tablet 06/15/20 Following Prescriptions Were Given to Patient: Ciprofloxacin 0.3% [Ciloxan] 2 drop RIGHT EYE Q4HWA #1 bottle Prescription Printed Lipase/Protease/Amylase [Creon Dr 36,000 Units Capsule] 36,000 units PO 4X/DAY #120 Prescription Printed Propranolol HCl [Inderal (Beta Shazia)] 20 mg PO BID #60 tablet Prescription Printed Simvastatin [Zocor] 20 mg PO QHS #30 tablet Prescription Printed Primary Care Physician: Jose Doctor,Out of [NON-STAFF] - Please follow up with your Primary Care Physician in: 1-2 weeks Medical Necessity - Tobacco Use Smoking Status: Current every day smoker Tobacco Use: Cigarettes Meaningful Use Info Meaningful Use Diagnoses (Choose all that apply): None applicable Inpatient E&M: 20512 [facility] Hosp
--- NOTE | 2020-06-15 10:06 | PHA.DC.MR ---
Pharmacy Service has performed discharge medication reconciliation for this patient. The patient's discharge medication list was reviewed for discrepancies and discrepancies were resolved. Home Medications Ciprofloxacin 0.3% [Ciloxan] 2 drop RIGHT EYE Q4HWA #1 bottle 06/15/20 Lipase/Protease/Amylase [Creon Dr 36,000 Units Capsule] 36,000 units PO 4X/DAY #120 06/15/20 Propranolol HCl [Inderal (Beta Shazia)] 20 mg PO BID #60 tablet 06/15/20 Simvastatin [Zocor] 20 mg PO QHS #30 tablet 06/15/20
== END 2020-06-15 10:00 | disposition home or self-care (01) | DRG 896 ==
LOC: ED 15:29 → MS3 16:03
PROVIDERS: Nurse Practitioner Family; Admitting Provider Internal Medicine; Emergency Provider Emergency Medicine; Visit Provider Internal Medicine
DX: F10.239 Alcohol dependence with withdrawal, unspecified (principal); E43 Unspecified severe protein-calorie malnutrition; Z68.1 Body mass index [BMI] 19.9 or less, adult; K86.0 Alcohol-induced chronic pancreatitis; F14.10 Cocaine abuse, uncomplicated; G89.29 Other chronic pain; R74.01 Elevation of levels of liver transaminase levels; I10 Essential (primary) hypertension; E78.5 Hyperlipidemia, unspecified; F10.229 Alcohol dependence with intoxication, unspecified; F17.210 Nicotine dependence, cigarettes, uncomplicated; Y90.6 Blood alcohol level of 120-199 mg/100 ml; I16.0 Hypertensive urgency; J06.9 Acute upper respiratory infection, unspecified; R94.5 Abnormal results of liver function studies; H10.89 Other conjunctivitis
CPT/HCPCS: 36415; 71046; 76705; 80048; 80053; 80076; 80307; 82077; 83690; 83735; 84484; 85025; 87426; 87633; 87635; 93005; 97802; 99284; A4216; U0002